=== PATIENT | male | born 1980 | race Caucasian/White ===

== ENCOUNTER → 2018-03-27 | Outpatient (CLI) | payer BC ==
[~2018-03-27] MED LIST: AMOXICILLIN500 MG PO; ATARAX25 MG PO; CEPHALEXIN500 M1 PO; CLARITIN10 MG PO; COMPAZINE10 MG PO; DARVOCET N 1001 TAB PO; HYDROCODONE BIT1 T11 PO; KEFLEX500 MG PO; MEDROL DOSEPAK4 MG PO; MIDRIN (DURADR1 CAP PO; MOTRIN800 MG PO; NAPROSYN500 MG PO; NKHM; NORFLEX100 MG PO; PEN-VK500 MG PO; PERCOCET 325 MG1 TA6 PO; PREDNISONE20 MG PO; PRILOSEC20 M1 PO; PROVENTIL0.09 MG/AC IH; TESSALON PERLE100 M1 PO; VICODIN 5/500 505 MG PO; VICODIN ES 7501 TAB PO; ZANTAC150 MG PO; ZITHROMAX Z PA250 MG PO
== END | disposition home or self-care (01) ==
LOC: RAD 12:21
DX: M54.5 Low back pain (principal); G89.29 Other chronic pain; R20.0 Anesthesia of skin; S12.590S Other displaced fracture of sixth cervical vertebra, sequela; X58.XXXS Exposure to other specified factors, sequela

== ENCOUNTER → 2018-10-06 | Outpatient (CLI) | payer BC | END | disposition home or self-care (01) | LOC: RAD 14:45 | DX: R22.2 Localized swelling, mass and lump, trunk (principal); Z87.891 Personal history of nicotine dependence ==

== ENCOUNTER 2020-05-28 11:46 | Emergency (ER) | payer BC ==
[~2020-05-28] VITALS: Ht 165.1 cm; Wt 63.5 kg
[2020-05-28] MEDS ORDERED: CEPHALEXIN500 M1 PO (12:32)
== END 2020-05-28 12:41 | disposition home or self-care (01) ==
LOC: ED 11:46
DX: S50.851A Superficial foreign body of right forearm, initial encounter (principal); Z79.899 Other long term (current) drug therapy; W45.8XXA Other foreign body or object entering through skin, initial encounter; Y93.89 Activity, other specified; Y92.89 Other specified places as the place of occurrence of the external cause; Y99.8 Other external cause status

== ENCOUNTER 2021-01-10 12:13 | Emergency (ER) | payer BC ==
[~2021-01-10] VITALS: Wt 61.2 kg
[2021-01-10] MEDS ORDERED: PREDNISONE20 M1 PO (14:14)
[2021-01-10] MEDS ORDERED: Motrin,Rufen800 MG PO (14:14)
== END 2021-01-10 14:21 | disposition home or self-care (01) ==
LOC: ED 12:13
DX: S46.911A Strain of unspecified muscle, fascia and tendon at shoulder and upper arm level, right arm, initial encounter (principal); K21.9 Gastro-esophageal reflux disease without esophagitis; F17.200 Nicotine dependence, unspecified, uncomplicated; Z79.899 Other long term (current) drug therapy; Z98.890 Other specified postprocedural states; X58.XXXA Exposure to other specified factors, initial encounter; Y93.89 Activity, other specified; Y92.89 Other specified places as the place of occurrence of the external cause; Y99.8 Other external cause status

== ENCOUNTER 2022-07-18 10:47 | Emergency (ER) | payer OTHER ==
[~2022-07-18] VITALS: Ht 165.1 cm; Wt 61.2 kg
[~2022-07-18 10:47] MED LIST changes: +Motrin,Rufen800 MG PO; +PREDNISONE20 M1 PO
[2022-07-18 12:00] VITALS: BP 126/82
[2022-07-18 14:19] VITALS: BP 141/83
[2022-07-18 14:34] VITALS: BP 152/84
[2022-07-18 14:49] VITALS: BP 134/86
[2022-07-18] MEDS ORDERED: HYDROCODONE-AC1 EAC1 PO (15:11)
== END 2022-07-18 11:40 | disposition home or self-care (01) ==
LOC: ED 10:47
DX: S68.120A Partial traumatic metacarpophalangeal amputation of right index finger, initial encounter (principal); Z79.899 Other long term (current) drug therapy; Z98.890 Other specified postprocedural states; W22.8XXA Striking against or struck by other objects, initial encounter; Y93.89 Activity, other specified; Y92.89 Other specified places as the place of occurrence of the external cause; Y99.8 Other external cause status

== ENCOUNTER 2024-03-08 21:04 | Emergency (ER) | payer SELFPAY ==
[~2024-03-08] VITALS: Ht 165.1 cm; Wt 59.9 kg
[~2024-03-08 21:04] MED LIST changes: +HYDROCODONE-AC1 EAC1 PO
[2024-03-08] MEDS ORDERED: Lidocaine Hydrochloride 2% 10 ML AMP SC ONE (21:40)
[2024-03-08] MEDS ORDERED: Bacitracin Zinc/Neomycin/Pol 15 GM TUBE T ONE (22:15)
== END 2024-03-08 22:26 | disposition home or self-care (01) ==
LOC: ED 21:04
DX: S61.511A Laceration without foreign body of right wrist, initial encounter (principal); K21.9 Gastro-esophageal reflux disease without esophagitis; Z98.890 Other specified postprocedural states; W22.8XXA Striking against or struck by other objects, initial encounter; Y93.89 Activity, other specified; Y92.89 Other specified places as the place of occurrence of the external cause; Y99.8 Other external cause status

== ENCOUNTER 2025-04-14 03:16 | Emergency (ER) | payer SELFPAY ==
[~2025-04-14] VITALS: Ht 165.1 cm; Wt 59.0 kg
[2025-04-14 03:38] LABS: BASO # 0.1 10*3/uL (0.0-0.1); BASO % 0.7 % (0.0-1.0); EOS % 0.2 % (1.0-4.0); HEMATOCRIT 38.4 % (42.0-52.0); MEAN CELL VOLUME 89.5 fl (80.0-94.0); MEAN CORPUSCULAR HGB CONC 34.6 g/dl (33.0-37.0); MEAN PLATELET VOLUME 9.3 fl (9.6-12.3); MONO # 0.5 10*3/uL (0.1-1.0); NEUT % 78.3 % (47.0-73.0); PLATELET COUNT AUTOMATED 257 10*3/uL (130-400); RED BLOOD COUNT 4.29 10*6/uL (4.50-5.90); RED CELL DISTRI WIDTH 13.6 % (0-14.5); WHITE BLOOD COUNT 11.5 10*3/uL (4.8-10.8)
[2025-04-14 03:58] LABS: ALKALINE PHOSPHATASE 74 U/L (46-116); CHLORIDE 102 mmol/L (98-107); CPK 152 U/L (34-171); POTASSIUM 2.7 mmol/L (3.4-5.1); SGPT/ALT 7 U/L (5-49); TOTAL PROTEIN 6.9 gm/dL (6.0-8.0)
[2025-04-14 04:00] LABS: BUN < 5 mg/dl (9-23); ETHYL ALCOHOL < 3.0 mg/dl (<3)
[2025-04-14 04:09] LABS: BILIRUBIN Negative (Negative); BLOOD Negative (Negative); CLARITY Clear (Clear); COLOR Yellow (Yellow); GLUCOSE Negative (Negative); KETONE Negative (Negative); LEUKO ESTERASE Negative (Negative); NITRITE Negative (Negative); PH 6.5 (4.5-8.0); SPECIFIC GRAVITY <= 1.005 (1.001-1.030)
[2025-04-14 04:16] LABS: URINE AMPHETAMINES Negative (1000ng/ml); URINE BARBITURATES Negative (200ng/ml); URINE BENZODIAZEPINES Negative (200ng/ml); URINE CANNABINOIDS (THC) Negative (50ng/ml); URINE COCAINE Negative (300ng/ml); URINE METHADONE Negative (300ng/ml); URINE OPIATES Negative (300ng/ml); URINE PHENCYCLIDINE Negative (25ng/ml)
[2025-04-14 04:18] LABS: MUCOUS TRACE; RBC 0-2 rbc/hpf (0-2)
[2025-04-14] MEDS ORDERED: POTASSIUM CHLORIDE 20 MEQ TAB PO ONE (05:05)
[2025-04-14] MEDS ORDERED: SODIUM CHLORIDE 0.9% 500 ML IV ONE (05:40)
[2025-04-14] MEDS ORDERED: POTASSIUM CHLORIDE IN WATER 100 ML IV SCH (06:00)
[2025-04-14] MEDS ORDERED: ACETAMINOPHEN 325 MG TAB PO ONE (06:30)
== END 2025-04-14 09:51 | disposition home or self-care (01) ==
LOC: ED 03:16
PROVIDERS: Emergency Medicine
DX: F43.21 Adjustment disorder with depressed mood (principal); K21.9 Gastro-esophageal reflux disease without esophagitis; Z79.899 Other long term (current) drug therapy; Z98.890 Other specified postprocedural states